=== PATIENT | male | born 1955 | race Hispanic/Latino ===

== ENCOUNTER 2017-04-23 10:25 | Inpatient (IN) | payer MEDICAID ==
[~2017-04-23] VITALS: Ht 165.1 cm; Wt 77.0 kg
[~2017-04-23 10:25] MED LIST: ANUCORT-HC25 MG RE; LISINOP/HCTZ1 TAB PO; LISINOPRIL10 MG PO; SIMVASTATIN10 MG PO; TERAZOSIN1 MG PO
[2017-04-23 11:01] LABS: ALBUMIN 4.4 g/dL (3.2-5.0); ALKALINE PHOSPHATASE 44 u/l (38-126); ANION GAP 16 (6-22 (CALC)); BILIRUBIN, TOTAL 0.4 mg/dL (0.0-1.4); BUN 17 mg/dL (9-20); BUN/CREATININE RATIO 19 (12-20 (CALC)); CALCIUM 8.8 mg/dL (8.4-10.2); CARBON DIOXIDE 25 mmol/l (22-30); CHLORIDE 103 mmol/l (95-108); CREATININE 0.9 mg/dL (0.7-1.3); GFR > 60 ML/MIN (>=60 (CALC)); GFR FOR AFR.AMER. > 60 ML/MIN (>=60 (CALC)); GLUCOSE 138 mg/dL (75-110); HEMATOCRIT 42.4 % (39.0-50.0); HEMOGLOBIN 14.3 g/dl (14.0-18.0); IMMATURE GRANULOCYTES 0.2 % (0.0-1.0); MEAN CELL VOLUME 85.5 fL CALC (80.0-100.0); MEAN CORPUSCULAR HGB 28.8 pG CALC (26.0-32.0); MEAN CORPUSCULAR HGB CONC 33.7 g/L CALC (32.0-36.0); NEUT# 2.82 thou/uL (1.82-7.42); POTASSIUM 3.6 mmol/l (3.5-5.1); RED BLOOD COUNT 4.96 mill/uL (4.70-6.10); RED CELL DISTRI WIDTH 13.6 % (11.5-15.5); SGOT/AST 27 u/l (17-59); SGPT/ALT 51 u/l (21-72); SODIUM 141 mmol/l (137-146); TOTAL PROTEIN 7.3 g/dL (6.3-8.2)
[2017-04-23] MEDS ORDERED: BACTRIM DS1 TAB PO (11:23)
[2017-04-23 15:30] VITALS: BP 133/84
[2017-04-23 20:46] VITALS: BP 129/73
[2017-04-24 04:50] VITALS: BP 109/65
[2017-04-24 08:02] VITALS: BP 116/68
[2017-04-24 15:13] VITALS: BP 121/66
[2017-04-24 20:20] VITALS: BP 125/72
[2017-04-25 04:05] VITALS: BP 114/71
[2017-04-25 08:40] VITALS: BP 135/85
[2017-04-25 14:21] VITALS: BP 115/72
[2017-04-25 20:00] VITALS: BP 112/63
[2017-04-25 23:20] VITALS: BP 133/55
[2017-04-26] VITALS (7 sets, daily range): BP systolic 108–141; BP diastolic 64–88
[2017-04-26 05:25] LABS: HEMATOCRIT 41.2 % (39.0-50.0); HEMOGLOBIN 13.8 g/dl (14.0-18.0); IMMATURE GRANULOCYTES 1.1 % (0.0-1.0); MEAN CELL VOLUME 86.2 fL CALC (80.0-100.0); MEAN CORPUSCULAR HGB 28.9 pG CALC (26.0-32.0); MEAN CORPUSCULAR HGB CONC 33.5 g/L CALC (32.0-36.0); NEUT# 5.65 thou/uL (1.82-7.42); RED BLOOD COUNT 4.78 mill/uL (4.70-6.10); RED CELL DISTRI WIDTH 13.7 % (11.5-15.5)
[2017-04-26 05:34] LABS: PROTHROMBIN TIME 10.3 SECONDS (9.0-12.5)
[2017-04-26 05:36] LABS: ANION GAP 16 (6-22 (CALC)); BUN 13 mg/dL (9-20); BUN/CREATININE RATIO 16 (12-20 (CALC)); CALCIUM 8.8 mg/dL (8.4-10.2); CARBON DIOXIDE 26 mmol/l (22-30); CHLORIDE 101 mmol/l (95-108); CREATININE 0.8 mg/dL (0.7-1.3); GFR > 60 ML/MIN (>=60 (CALC)); GFR FOR AFR.AMER. > 60 ML/MIN (>=60 (CALC)); GLUCOSE 93 mg/dL (75-110); POTASSIUM 4.2 mmol/l (3.5-5.1); SODIUM 138 mmol/l (137-146)
[2017-04-26] MEDS ORDERED: CLINDAMYCIN300 M1 PO (17:21)
[2017-04-26] MEDS ORDERED: FLORASTOR250 M1 PO (17:21)
[2017-04-26] MEDS ORDERED: CIPROFLOXACN500 MG PO (17:21)
[2017-04-27 00:45] VITALS: BP 128/73
[2017-04-27 04:50] VITALS: BP 136/77
[2017-04-27 09:03] VITALS: BP 138/86
== END 2017-04-27 11:16 | disposition home or self-care (01) | DRG 908 ==
LOC: ENPENDDIS → ED 10:25 → ED-I 10:52 → ED 13:34 → MS2 13:35
PROVIDERS: Emergency Medicine; ADMIT Internal Medicine; ATTEND Internal Medicine
PROC: 0QCL0ZZ Extirpation of Matter from Right Tarsal, Open Approach (ICD-10-PCS; principal; 2017-04-26)
DX: S91.321A Laceration with foreign body, right foot, initial encounter (principal); L02.611 Cutaneous abscess of right foot; I10 Essential (primary) hypertension; E78.5 Hyperlipidemia, unspecified; W20.8XXA Other cause of strike by thrown, projected or falling object, initial encounter; Y93.H2 Activity, gardening and landscaping; Y92.89 Other specified places as the place of occurrence of the external cause
CPT/HCPCS: J1650

== ENCOUNTER 2019-12-13 | Emergency (ER) | payer SELFPAY ==
[~2019-12-13] MED LIST changes: +BACTRIM DS1 TAB PO; +CIPROFLOXACN500 MG PO; +CLINDAMYCIN300 M1 PO; +FLORASTOR250 M1 PO
[2019-12-13 08:43] LABS: URINE BILIRUBIN - DIPSTICK NEGATIVE (NEGATIVE); URINE BLOOD DIPSTICK TRACE-INTACT (NEGATIVE); URINE CLARITY CLEAR; URINE COLOR YELLOW; URINE GLUCOSE - DIPSTICK NEGATIVE (NEGATIVE); URINE KETONE NEGATIVE (NEGATIVE); URINE LEUK ESTERASE NEGATIVE (Negative); URINE NITRITE - DIPSTICK NEGATIVE (Negative); URINE PROTEIN - DIPSTICK NEGATIVE (NEG-TRACE); URINE SPECIFIC GRAVITY 1.015; URINE UROBILINOGEN - DIPSTICK 0.2 E.U./dL (0.2)
[2019-12-13] MEDS ORDERED: MEDDOSEPAK PO (08:53)
[2019-12-13] MEDS ORDERED: NAPROSYN250 MG PO (08:53)
[2019-12-13] MEDS ORDERED: FLEXERIL PO (08:53)
== END 2019-12-13 09:12 | disposition home or self-care (01) | DRG 552 ==
PROVIDERS: Emergency Medicine
DX: M54.42 Lumbago with sciatica, left side (principal); I10 Essential (primary) hypertension

== ENCOUNTER 2023-11-08 08:35 | Emergency (ER) | payer MEDICARE ==
[~2023-11-08] VITALS: Ht 165.1 cm; Wt 84.1 kg
[2023-11-08] VITALS (9 sets, daily range): BP systolic 106–168; BP diastolic 74–136
[~2023-11-08 08:35] MED LIST changes: +FLEXERIL PO; +MEDDOSEPAK PO; +NAPROSYN250 MG PO
[2023-11-08 08:59] LABS: BASO% 0.8 % (0-3); EOS% 2.9 % (0-8); HEMOGLOBIN 15.1 g/dl (14.0-18.0); LYMPH% 29.2 % (15-41); MEAN CELL VOLUME 85.5 fL CALC (80.0-100.0); MEAN CORPUSCULAR HGB 28.1 pG CALC (26.0-32.0); MEAN CORPUSCULAR HGB CONC 32.8 g/dL CAL (32.0-36.0); MONO% 9.3 % (2-13); NEUT# 4.45 thou/uL (1.82-7.42); NEUT% 56.8 % (42-76); RED BLOOD COUNT 5.38 mill/uL (4.70-6.10); RED CELL DISTRI WIDTH 13.3 % (11.5-15.5)
[2023-11-08 09:36] LABS: LIPASE 75 u/l (23-300)
[2023-11-08 09:40] LABS: URINE BILIRUBIN - DIPSTICK Negative (NEGATIVE); URINE BLOOD DIPSTICK Negative (NEGATIVE); URINE GLUCOSE - DIPSTICK Negative (NEGATIVE); URINE KETONE Negative (NEGATIVE); URINE LEUK ESTERASE Negative (NEGATIVE); URINE NITRITE - DIPSTICK Negative (Negative); URINE PROTEIN - DIPSTICK Negative (NEG-TRACE); URINE SPECIFIC GRAVITY 1.015; URINE UROBILINOGEN - DIPSTICK 0.2 E.U./dL (0.2)
[2023-11-08 09:41] LABS: ALBUMIN 4.7 g/dL (3.2-5.0); ALKALINE PHOSPHATASE 65 u/l (38-126); ANION GAP 13 (6-22 (CALC)); BILIRUBIN, TOTAL 0.4 mg/dL (0.2-1.3); BUN 13 mg/dL (8-23); BUN/CREATININE RATIO 16 (12-20 (CALC)); CARBON DIOXIDE 27 mmol/l (22-30); CHLORIDE 103 mmol/l (95-108); CREATININE 0.8 mg/dL (0.7-1.3); GFR FOR AFR.AMER. > 60 ML/MIN (>=60 (CALC)); GFR OTHER RACES > 60 ML/MIN (>=60 (CALC)); SGOT/AST 31 u/l (19-48); SODIUM 139 mmol/l (137-146); TOTAL PROTEIN 7.3 g/dL (6.3-8.2)
[2023-11-08 09:41] LABS: URINE COLOR Yellow
[2023-11-08] MEDS ORDERED: OMEPRAZOLE20 MG PO ×2 (10:51→14:27)
[2023-11-11] MEDS ORDERED: TAMSULOSIN0.4 MG PO (08:48)
[2023-11-11] MEDS ORDERED: FINASTERIDE5 MG PO (08:48)
[2023-11-11] MEDS ORDERED: NAPROXEN500 MG PO (09:28)
[2023-11-11] MEDS ORDERED: CVS OMEPRAZOLE20 MG PO (09:28)
== END 2023-11-08 11:39 | disposition home or self-care (01) ==
LOC: ED 08:35
PROVIDERS: Family Medicine
DX: R10.12 Left upper quadrant pain (principal); R91.8 Other nonspecific abnormal finding of lung field; I10 Essential (primary) hypertension; E78.5 Hyperlipidemia, unspecified; N40.0 Benign prostatic hyperplasia without lower urinary tract symptoms
CPT/HCPCS: Q9967